=== PATIENT | female | born 2000 | race African-American/Black ===

== ENCOUNTER 2019-12-18 15:45 | Emergency (ER) | payer SELFPAY ==
[~2019-12-18] VITALS: Ht 177.8 cm; Wt 63.6 kg
[2019-12-18 15:50] VITALS: BP 105/64
--- NOTE | 2019-12-18 16:01 | NUR ---
PATIENT AMBULATED WITH STEADY GAIT TO BED 5.
--- NOTE | 2019-12-18 16:25 | NUR ---
19 Y/F PRESENTS TO ED FOR "SPIDER BITE" X 2 DAY TO R FOREARM. PT REPORTS IT HAD A HEAD AND SHE POPPED IT TODAY AND SEROSANGUINEOUS DISCHARGE CAME OUT. PT ALSO REPORTS TAKING HER SISTERS ANTIBIOTIC OF BACTRIM "2 PILLS YESTERDAY AND 2 PILLS TODAY". PT REPORTS 9/10 THROBBING AND BURNING PAIN. NKDA DENIES PMH
--- NOTE | 2019-12-18 16:34 | NUR ---
MAMADOU HOGUE AT BEDSIDE.
[2019-12-18] MEDS ORDERED: cefTRIAXone 1,000 MG in LIDOCAINE MPF 1% 2.1 ML IM ONE (16:55)
[2019-12-18] MEDS ORDERED: ACETAMINOPHEN 325 MG TAB PO ONE (16:55)
[2019-12-18] MEDS ORDERED: cefTRIAXone 1,000 MG VIAL ONE (16:59)
[2019-12-18] MEDS ORDERED: LIDOCAINE MPF 1% 5 ML ONE (16:59)
[2019-12-18 17:11] VITALS: BP 105/64
--- NOTE | 2019-12-18 17:11 | NUR ---
Patient discharged with v/s stable. Written and verbal after care instructions given and explained. Patient alert, oriented and verbalized understanding of instructions. Ambulatory with steady gait. All questions addressed prior to discharge. ID band removed. Patient advised to follow up with PMD. Rx of KEFLEX,ACETAMINOPHEN, PLUS,CLINDAMYCIN given. Patient educated on indication of medication including possible reaction and side effects. Opportunity to ask questions provided and answered.
== END 2019-12-18 17:11 | disposition home or self-care (01) ==
LOC: MED 15:45
DX: O26.899 Other specified pregnancy related conditions, unspecified trimester (principal); O23.40 Unspecified infection of urinary tract in pregnancy, unspecified trimester; L02.413 Cutaneous abscess of right upper limb; N39.0 Urinary tract infection, site not specified
CPT/HCPCS: 81002; 81025; 87086; 96372; 99283; J0696; J2001